=== PATIENT | female | born 1930 | race Caucasian/White ===

== ENCOUNTER 2017-11-02 09:15 | Inpatient (IN) | payer MEDICARE ==
[~2017-11-02] VITALS: Ht 153.2 cm; Wt 47.3 kg
[2017-11-02 09:54] LABS: BASOPHILS # (AUTO) 0.01 x10^3/uL (0-0.1); BASOPHILS % (AUTO) 0 % (0-1); EOSINOPHILS # (AUTO) 0.03 x10^3/uL (0-0.4); EOSINOPHILS % (AUTO) 0 % (1-7); LYMPHOCYTES # (AUTO) 1.05 x10^3/uL (1-3.4); LYMPHOCYTES % (AUTO) 8 % (22-44); MD NO; MEAN CORPUSCULAR HEMOGLOBIN 28.7 pg (27.0-34.8); MEAN CORPUSCULAR HGB CONC 32.5 g/dL (32.4-35.8); MEAN CORPUSCULAR VOLUME 88.6 fL (80-100); MEAN PLATELET VOLUME 7.7 fL (7.4-10.4); MONOCYTES # (AUTO) 0.76 x10^3/uL (0.2-0.8); MONOCYTES % (AUTO) 6 % (2-9); NEUTROPHILS # (AUTO) 10.93 x10^3/uL (1.8-6.8); NEUTROPHILS % (AUTO) 86 % (42-75); PLATELET COUNT 337 x10^3/uL (130-400); RED BLOOD COUNT 4.49 x10^6/uL (3.82-5.3); RED CELL DISTRIBUTION WIDTH 13.8 % (9.6-15.2)
[2017-11-02] MEDS ORDERED: MORPHINE SULFATE 4 MG/ML, 1ML IVPush PRN (10:00)
[2017-11-02] MEDS ORDERED: SODIUM CHLORIDE FLUSH 10ML SYR IVF ONE (10:00)
[2017-11-02] MEDS ORDERED: ONDANSETRON ODT 4 MG PO ONE (10:00)
[2017-11-02 10:03] LABS: INTERNATIONAL NORMALIZED RATIO 0.96 (0.93-1.1)
[2017-11-02 10:06] LABS: ALBUMIN 3.9 g/dL (3.4-5.0); ANION GAP 9 mmol/L (5-15); CALCIUM 9.9 mg/dL (8.5-10.1); CHLORIDE 107 mmol/L (98-107)
[2017-11-02 10:18] LABS: ALANINE AMINOTRANSFERASE 24 U/L (12-78); ALKALINE PHOSPHATASE 79 U/L (45-117); BILIRUBIN,TOTAL 0.8 mg/dL (0.2-1.0); CREATININE 0.96 mg/dL (0.55-1.02); TOTAL PROTEIN 7.2 g/dL (6.4-8.2)
[2017-11-02] MEDS ORDERED: ONDANSETRON ODT 4 MG ONE (10:23)
[2017-11-02] MEDS ORDERED: MORPHINE SULFATE 4 MG/ML, 1ML ONE (10:24)
[2017-11-02] MEDS ORDERED: [UNRECOGNIZED DRUG - OTHER] INH (10:32)
[2017-11-02] MEDS ORDERED: BUDE10.22 INH (10:33)
[2017-11-02] MEDS ORDERED: OXYcodone IR 5MG TABLET PO PRN (11:00)
[2017-11-02] MEDS ORDERED: hydrALAzine 20 MG/ML, 1ML IVPush PRN (11:00)
[2017-11-02] MEDS ORDERED: SODIUM CHLORIDE FLUSH 10ML SYR IVF PRN (11:00)
[2017-11-02] MEDS ORDERED: LABETALOL 5MG/ML, 20ML IVPush PRN (11:00)
[2017-11-02] MEDS ORDERED: ACETAMINOPHEN 325 MG TABLET PO PRN (11:00)
[2017-11-02] MEDS ORDERED: ENOXAPARIN 40 MG/0.4 ML SQ SCH (11:00)
[2017-11-02 11:58] VITALS: BP 147/71
[2017-11-02] MEDS: LACTATED RINGERS 1,000 ML IV SCH (12:30)
[2017-11-02] MEDS ORDERED: KETOROLAC 30 MG/1 ML IVPush PRN (12:30)
[2017-11-02] MEDS: ENOXAPARIN 30 MG/0.3 ML SQ SCH (14:31)
[2017-11-02] MEDS ORDERED: ALBUTEROL SULFATE 2.5 MG/3 ML NPPB PRN (15:00)
[2017-11-02 19:16] VITALS: BP 128/68
[2017-11-03] MEDS: LACTATED RINGERS 1,000 ML IV SCH (00:30)
[2017-11-03] MEDS ORDERED: [UNRECOGNIZED DRUG - OTHER] INH PRN (01:00)
[2017-11-03] MEDS ORDERED: SYMBICORT 80 MCG INH PRN (01:00)
[2017-11-03 01:03] VITALS: BP 143/63
[2017-11-03 07:00] VITALS: BP 133/67
[2017-11-03] MEDS: LEVALBUTEROL INH PRN ×2 (08:01→12:49)
[2017-11-03] MEDS ORDERED: SYMBICORT 80 MCG INH SCH (09:00)
[2017-11-03] MEDS: FLUTICASONE/VILANTEROL 200-25MCG/INH INH SCH (10:19)
[2017-11-03] MEDS: SYMBICORT INH SCH ×2 (10:28→22:18)
[2017-11-03 13:45] VITALS: BP 115/72
[2017-11-03] MEDS: ENOXAPARIN 30 MG/0.3 ML SQ SCH (16:40)
[2017-11-03 17:50] VITALS: BP 125/63
[2017-11-03 19:39] VITALS: BP 153/74
[2017-11-04 01:51] VITALS: BP 129/72
[2017-11-04] MEDS: IBUPROFEN 200 MG TABLET PO PRN ×3 (06:13→23:07)
[2017-11-04 07:32] VITALS: BP 140/73
[2017-11-04 07:33] LABS: BASOPHILS # (AUTO) 0.05 x10^3/uL (0-0.1); BASOPHILS % (AUTO) 1 % (0-1); EOSINOPHILS # (AUTO) 0.21 x10^3/uL (0-0.4); EOSINOPHILS % (AUTO) 3 % (1-7); LYMPHOCYTES # (AUTO) 1.35 x10^3/uL (1-3.4); LYMPHOCYTES % (AUTO) 18 % (22-44); MD NO; MEAN CORPUSCULAR HEMOGLOBIN 29.1 pg (27.0-34.8); MEAN CORPUSCULAR HGB CONC 32.8 g/dL (32.4-35.8); MEAN CORPUSCULAR VOLUME 88.7 fL (80-100); MEAN PLATELET VOLUME 7.7 fL (7.4-10.4); MONOCYTES # (AUTO) 0.89 x10^3/uL (0.2-0.8); MONOCYTES % (AUTO) 12 % (2-9); NEUTROPHILS % (AUTO) 66 % (42-75); PLATELET COUNT 264 x10^3/uL (130-400); RED BLOOD COUNT 3.91 x10^6/uL (3.82-5.3); RED CELL DISTRIBUTION WIDTH 13.9 % (9.6-15.2)
[2017-11-04] MEDS: FLUTICASONE/VILANTEROL 200-25MCG/INH INH SCH (08:47)
[2017-11-04] MEDS: SYMBICORT INH SCH ×2 (08:48→20:27)
[2017-11-04 15:09] VITALS: BP 146/66
[2017-11-04] MEDS ORDERED: MAGNESIUM HYDROXIDE 8%, 30ML UDC PO PRN (15:30)
[2017-11-04] MEDS: ENOXAPARIN 30 MG/0.3 ML SQ SCH (16:13)
[2017-11-04 18:39] VITALS: BP 114/59
[2017-11-04] MEDS: DOCUSATE 100 MG CAPSULE PO SCH (20:27)
[2017-11-05 01:41] VITALS: BP 144/73
[2017-11-05] MEDS: IBUPROFEN 200 MG TABLET PO PRN ×2 (05:24→14:35)
[2017-11-05 08:13] VITALS: BP 155/76
[2017-11-05] MEDS: LEVALBUTEROL INH PRN ×3 (09:37→16:26)
[2017-11-05] MEDS: SYMBICORT INH SCH ×2 (09:37→22:27)
[2017-11-05] MEDS: FLUTICASONE/VILANTEROL 200-25MCG/INH INH SCH (09:37)
[2017-11-05] MEDS: CHOLECALCIFEROL 1,000 UNIT TABLET PO SCH (09:37)
[2017-11-05] MEDS: DOCUSATE 100 MG CAPSULE PO SCH ×2 (09:38→22:26)
[2017-11-05 13:25] VITALS: BP 140/67
[2017-11-05] MEDS: ENOXAPARIN 30 MG/0.3 ML SQ SCH (16:21)
[2017-11-05 19:33] VITALS: BP 122/60
[2017-11-06 02:05] VITALS: BP 154/68
[2017-11-06] MEDS: IBUPROFEN 200 MG TABLET PO PRN (04:37)
[2017-11-06 08:28] VITALS: BP 162/75
[2017-11-06] MEDS: DOCUSATE 100 MG CAPSULE PO SCH (08:48)
[2017-11-06] MEDS: SYMBICORT INH SCH (08:48)
[2017-11-06] MEDS: CHOLECALCIFEROL 1,000 UNIT TABLET PO SCH (08:48)
[2017-11-06] MEDS: FLUTICASONE/VILANTEROL 200-25MCG/INH INH SCH (08:48)
[2017-11-06 09:29] VITALS: BP 133/64
[2017-11-06] MEDS ORDERED: CHOL10003 PO (09:46)
[2017-11-06] MEDS ORDERED: ACET325T14 PO (09:46)
[2017-11-06] MEDS ORDERED: FLUT1BLS INH (09:46)
[2017-11-06] MEDS ORDERED: TIOT18CA INH (09:47)
[2017-11-06 13:27] VITALS: BP 137/64
== END 2017-11-06 14:23 | disposition home health service (06) | DRG 200 ==
LOC: ED 10:15 → EDIP 10:31 → 4WST 11:17 → 4NOR 11-03 17:18
PROVIDERS: ADMIT Hospitalist; ATTEND Hospitalist
DX: T79.7XXA Traumatic subcutaneous emphysema, initial encounter (principal); S22.42XA Multiple fractures of ribs, left side, initial encounter for closed fracture; G90.8 Other disorders of autonomic nervous system; E55.9 Vitamin D deficiency, unspecified; J45.909 Unspecified asthma, uncomplicated; K59.00 Constipation, unspecified; M54.9 Dorsalgia, unspecified; W01.0XXA Fall on same level from slipping, tripping and stumbling without subsequent striking against object, initial encounter; Y93.89 Activity, other specified; Y92.098 Other place in other non-institutional residence as the place of occurrence of the external cause; Z90.49 Acquired absence of other specified parts of digestive tract; Z83.6 Family history of other diseases of the respiratory system
CPT/HCPCS: 36415; 70450; 71045; 80053; 82306; 85025; 85610; 85730; 93005; 93306; 93880; 96374; J1650; J1885; Q0162; J7120

== ENCOUNTER 2018-08-09 08:30 | Emergency (ER) | payer MEDICARE ==
[~2018-08-09] VITALS: Ht 152.4 cm; Wt 43.0 kg
[~2018-08-09 08:30] MED LIST: ACET325T14 PO; BUDE10.22 INH; CHOL10003 PO; FLUT1BLS INH; TIOT18CA INH; [UNRECOGNIZED DRUG - OTHER] INH
--- NOTE | 2018-08-09 08:43 | NUR ---
Pt presents to ED by EMS with c/o of red, raised, vesicular rash. Pt states she has had it since July 30. Pt states 7/10 pain in her left arm and left side. Pt denies cp, sob, trauma, n/v/d, or fevers. Pt resting on gurney connected to NIBP and continous pulse ox. NADN. All safety measures in place. No needs expressed. EDPA at bedside.
[2018-08-09] MEDS ORDERED: BUDE10.2 PO (08:48)
[2018-08-09] MEDS ORDERED: KETOROLAC 30 MG/1 ML IM ONE (09:00)
[2018-08-09] MEDS ORDERED: KETOROLAC 30 MG/1 ML ONE (09:05)
--- NOTE | 2018-08-09 09:16 | NUR ---
DONALD CARIAS [phone]
[2018-08-09 10:19] VITALS: BP 161/92
--- NOTE | 2018-08-09 10:20 | NUR ---
Patient given discharge instructions and they have confirmed that they understand the instructions. Patient ambulatory with steady gait. Pt left with prescription, discharge paperwork, and all personal belongings. Pt's "serogate granddaughter" contacted and is picking up pt for discharge.
== END 2018-08-09 11:29 | disposition home or self-care (01) ==
LOC: ED 10:19
DX: B02.9 Zoster without complications (principal)
CPT/HCPCS: 96372; 99283; J1885; J7512